=== PATIENT | male | born 1990 ===

== ENCOUNTER 2022-05-08 20:15 | Emergency (ER) | payer BC ==
[2022-05-08] MEDS ORDERED: Sodium Chloride 0.9% 1,000 ML IV ONE (21:30)
[2022-05-08] MEDS ORDERED: Sodium Chloride 0.9% 10 ML Syringe FLUSH PRN (21:30)
[2022-05-08] MEDS ORDERED: Ondansetron 4 MG/2 ML SDV IVPUSH ONE (21:30)
[2022-05-08] MEDS ORDERED: Sodium Chloride 0.9% 2.5 ML Syringe FLUSH PRN (21:30)
[2022-05-08] MEDS ORDERED: Ketorolac 30 MG/ML SDV IVPUSH ONE (21:30)
[2022-05-08 22:11] LABS: CARBON DIOXIDE,CO2 28.3 mmol/L (21.0-32.0); POTASSIUM,K 3.6 mmol/L (3.5-5.1)
[2022-05-08] MEDS ORDERED: Tamsulosin 0.4 MG Cap.ER PO ONE (22:58)
== END 2022-05-08 23:30 | disposition home or self-care (01) ==
LOC: MW.ED 20:15
DX: N20.0 Calculus of kidney (principal)
CPT/HCPCS: 36415; 74176; 80053; 81001; 83690; 85025; 96361; 96374; 96375; 99284; A9270; J1885; J2405; J7030